=== PATIENT | female | born 1935 | race Caucasian/White ===

== ENCOUNTER 2020-07-17 11:25 | Emergency (ER) | payer OTHER ==
[2020-07-17 11:31] VITALS: TEMP 97; BMI 21.6
[2020-07-17 13:53] VITALS: BP 144/80; PULSE 77
== END 2020-07-17 13:53 | disposition home or self-care (01) ==
LOC: JER 11:25
DX: J02.9 Acute pharyngitis, unspecified (principal)
CPT/HCPCS: 70360-TC-FY; 71046-TC-FY; 99284-25

== ENCOUNTER 2020-11-24 15:08 | Emergency (ER) | payer OTHER ==
[2020-11-24 15:19] VITALS: BP 126/67; PULSE 74; TEMP 97.6
[2020-11-24] MEDS ORDERED: SODIUM CHLORIDE 0.9% 500 ML INFUS.BAG IV ONE (16:32)
[2020-11-24 18:23] LABS: BASO % 0.8 % (0-2.0); EOS % 0.9 % (0-4.5); HEMATOCRIT 45.6 % (32.4-45.2); HEMOGLOBIN 15.6 GM/dL (10.7-15.3); LYMPH % 7.2 % (8-40); MCHC 34.1 g/dl (32.0-36.0); MEAN CELL VOLUME 85.2 fl (80-96); MEAN PLT VOLUME 8.9 fl (7.5-11.1); MONO % 5.1 % (3.8-10.2); PLATELET COUNT 215 10^3/uL (134-434); RBC 5.35 M/mm3 (3.60-5.2); RDW 14.7 % (11.6-15.6); WHITE BLOOD COUNT 8.7 K/mm3 (4.0-10.0)
[2020-11-24 18:42] LABS: ALBUMIN 3.7 g/dl (3.4-5.0); BLOOD UREA NITROGEN 13.9 mg/dL (7-18); CALCIUM 9.3 mg/dL (8.5-10.1)
[2020-11-24 18:46] LABS: BILIRUBIN,TOTAL 1.2 mg/dL (0.2-1); TOT PROT 6.7 g/dl (6.4-8.2)
[2020-11-24 19:27] LABS: URINE APPEARANCE Clear; URINE BILIRUBIN 1+ (NEGATIVE); URINE COLOR Yellow; URINE GLUCOSE (UA) Negative (NEGATIVE); URINE KETONE Trace (NEGATIVE); URINE LEUK ESTERASE 2+ (NEGATIVE); URINE NITRITE Negative (NEGATIVE); URINE PROTEIN Trace (NEGATIVE); URINE UROBILINOGEN 0.2 mg/dL (0.2-1.0)
[2020-11-24] MEDS ORDERED: FOSFOMYCIN TROMETHAMINE 3 GM/PKT FOR ORAL SOLUTION PO SCH (20:30)
== END 2020-11-24 22:24 | disposition home or self-care (01) ==
LOC: JER 15:08
DX: R19.7 Diarrhea, unspecified (principal)
CPT/HCPCS: 36415; 74177-TC; 80053; 81003; 83690; 85025; 87086; 87186; 99285-25; Q9967